=== PATIENT | female | born 1960 | race Caucasian/White ===

== ENCOUNTER 2021-06-06 16:25 | Inpatient (IN) | payer MEDICARE, OTHER ==
[~2021-06-06] VITALS: Ht 149.9 cm; Wt 46.5 kg
--- NOTE | ~2021-06-06 | CON ---
[address] [address] CONSULTATION Name: NATAFIFI Lara Room: [address]#: [id number] Admission: 06/06/21 Attend Phys: German Stubbs Discharge: 06/07/21 Date of : 60 Report #: [id number] THIS REPORT FOR: cc: Mary Duran Ahmad W. DO Vasudeva, Amita MD ~ DATE OF CONSULTATION: 06/07/2021 NEPHROLOGY CONSULTATION CONSULTING PHYSICIAN: Dr. Houser. REASON FOR NEPHROLOGY CONSULTATION: ESRD for hemodialysis need. REASON FOR ADMISSION: Shortness of breath. HISTORY OF PRESENT ILLNESS: This is a 60-year-old female with history of ESRD, on hemodialysis Saturday, Saturday, Saturday ____ dialysis unit under the care of Dr. Yusuf, has a right IJ tunneled dialysis catheter for dialysis and last dialysis was on Saturday, came in with shortness of breath. Chest x-ray does show pulmonary vascular congestion and her blood pressure was also running towards the higher side. When I saw her in the ER this morning, she was feeling a little better. She also had a hemoglobin of 6.1 on admission. No overt bleeding from anywhere. She was given blood transfusion. Hemoglobin was 9.3 this morning. The patient will be dialyzed today. ALLERGIES: SULFA. PAST MEDICAL AND SURGICAL HISTORY: Includes nephrectomy for Wilms tumor, gastric bypass surgery, breast reduction, lumbar disk surgery, hysterectomy, right knee arthroscopic surgery, , hypertension, hypothyroidism, breast cancer with mastectomy on right side. HOME MEDICATIONS: Include fentanyl patch, omeprazole, Effexor, levothyroxine, temazepam, Medrol Dosepak, Lasix, labetalol, clonidine, gabapentin, vitamin B12, tizanidine, trazodone, hydrocodone. FAMILY HISTORY: Noncontributory. SOCIAL HISTORY: Does not smoke, drink alcohol or use illicit drugs. PHYSICAL EXAMINATION: VITAL SIGNS: Blood pressure 173/91, temperature 37.4, pulse rate was 107, respiratory rate was 14 and her oxygenation was 99% on 2 liters of [place] [address] CONSULTATION Name: FIFI PEACE Room: [address]#: [id number] Admission: 06/06/21 Attend Phys: German Stubbs Discharge: 06/07/21 Date of : 60 Report #: [id number] GENERAL: She was awake, alert and oriented x 3. HEENT: Atraumatic and normocephalic. Conjunctivae normal. Ears, nose, and throat normal. Mucous membranes moist. NECK: No JVD. CHEST: Bilateral diminished breath sounds. CARDIAC: S1, S2 normal. No murmurs. Dialysis access right IJ tunneled dialysis catheter. ABDOMEN: Soft, nondistended, nontender. LOWER EXTREMITIES: No lower extremity edema. NEUROLOGIC: Grossly intact. PSYCHIATRIC: Mood and affect seems to be normal. LABORATORY DATA: WBC 9.7, hemoglobin 9.3 up from 6.1, platelet count was 171. Sodium was 137, potassium 4.9. Other labs are reviewed. IMAGING: Chest x-ray was reviewed. ASSESSMENT AND PLAN: 1. End-stage renal disease on hemodialysis every Saturday, Saturday and Saturday. Last outpatient dialysis was on Saturday. 2. Anemia, does have anemia of chronic kidney disease as well and but this is acute on chronic anemia and etiology is not clear. Admission hemoglobin was 6.1. 3. Hypertension. 4. Acute respiratory failure, fluid overload is contributing. 5. Hypertension. Blood pressure running into the higher side. PLAN: 1. The patient will be dialyzed today. We will try to remove as much fluid as possible. We will aim for 4 liters. 2. We will give her erythropoietin to help with her anemia. Acute bleeding needs to be ruled out by primary team. 3. We will continue to follow for dialysis needs. Please call with any questions. By: [id number] Orellana MD /nt
[~2021-06-06 16:25] MED LIST: ATENOLOL 25MG T25 MG PO; CIPROFLOXACIN500 M3 OR; CLONIDINE HCL0.1 MG PO; CYANOCOBAL1000 MCG/1 IM; DESYREL150 MG PO; EFFEXOR XR150 MG; EFFEXOR XR150 MG PO; FENTANYL PATCH75 MCG; FENTANYL PATCH75 MCG TOP; HYDROCODON-ACE1 EAC8 PO; HYDROCODONE-AP1 EACH PO; LABETALOL HCL100 MG PO; LASIX 40 MG TAB40 M1 PO; MEDROLDOSEPACK PO; NEURONTIN800 MG PO; PERCOCET 5-3251 EACH PO; PRILOSEC OTC20 MG PO; PRILOSEC40 MG; PROCARDIA XL60 MG; RESTORIL30 MG; RESTORIL30 MG PO; SYNTHROID100 MC1 PO; SYNTHROID100 MCG; VASOTEC20 MG; ZANAFLEX4 M1 PO
[2021-06-06 16:30] VITALS: BP 136/64
[2021-06-06 16:56] LABS: ABSOLUTE EOSINOPHILS 0.1 thou/uL (0.0-0.7); ABSOLUTE LYMPHOCYTES 0.7 thou/uL (0.8-5.3); ABSOLUTE MONOCYTES 0.7 thou/uL (0.0-1.2); ABSOLUTE NEUTROPHILS 8.1 thou/uL (1.6-8.1); BASOPHILS 0.4 %; EOSINOPHILS 1.5 %; LYMPHOCYTES 6.9 %; MCH 34.8 pg (26.0-34.0); MCHC 32.7 g/dL (28.0-37.0); MCV 106.6 fL (80.0-100.0); MONOCYTES 7.4 %; MPV 8.7 fl. (7.2-11.1); NUCLEATED RBCS 0 /100WBC; PLATELET COUNT* 171 thou/uL (150-400); POLYS 83.8 %; RBC 1.76 mil/uL (4.20-5.00); RDW-CV 18.9 % (10.5-14.5); WBC 9.7 thou/uL (4.0-11.0)
[2021-06-06 17:00] LABS: HEMATOCRIT 18.8 % (37.0-47.0); HEMOGLOBIN 6.1 gm/dL (12.0-15.0)
[2021-06-06 17:14] LABS: ANION GAP 11 mmol/L (7-16); BUN 27 mg/dL (7-18); CALCIUM 7.5 mg/dL (8.5-10.1); CHLORIDE 103 mmol/L (98-107); CO2 23 mmol/L (21-32); CREATININE 2.6 mg/dL (0.6-1.3); GLUCOSE 169 mg/dL (70-99); POTASSIUM 4.9 mmol/L (3.5-5.1); SODIUM 137 mmol/L (136-145)
[2021-06-06 17:25] LABS: ALBUMIN 1.9 g/dL (3.4-5.0); ALKALINE PHOSPHATASE 53 U/L (46-116); SGOT 23 U/L (15-37); SGPT 21 U/L (30-65); TOTAL BILIRUBIN 0.2 mg/dL (<0.1-1.0); TOTAL PROTEIN 4.6 g/dL (6.4-8.2)
[2021-06-06 17:28] LABS: NT-PRO BRAIN NAT PEPTIDE > 35000 pg/mL (<300)
--- NOTE | 2021-06-06 19:06 | NUR ---
ASSUMED CARE AT 1900. REPORT TAKEN FROM PELON PICKENS.
[2021-06-06 21:48] VITALS: BP 155/78
[2021-06-07 01:30] VITALS: BP 162/87
[2021-06-07 05:30] VITALS: BP 171/90
[2021-06-07 07:00] VITALS: BP 173/91
[2021-06-07 09:02] VITALS: BP 173/91
--- NOTE | 2021-06-07 12:13 | NUR ---
cm s/w pt who was receiving dialysis at [facility]. pt receives outpatient dialysis on 0500-noon seat time at [facility]. pt lives with spouse. and admitted to [facility] from [facility]. the plan is for pt to rtrn to snf. pt uses cane, walker, w/c. pt has home o2 at 2l. pt indicated she is independent with adls and is capable of completing chores. pt is transfused regularly. h&p and flowsheets to be submitted to [facility] at d/c.
[2021-06-07 13:25] VITALS: BP 146/71
--- NOTE | 2021-06-07 14:13 | EKG ---
[place] [address] ELECTROCARDIOGRAM REPORT Name: FIFI PEACE Room: [address] ADM IN .R.#: [id number] Admission: 06/06/21 Attend Phys: Tiesha Calzada Discharge: Date of : 60 Date of Service: 06/06/21 1716 Report #: [id number] THIS REPORT FOR: //name// [facility] ED Test Date: 2021-06-06 Test Time: 17:16:42 Pat Name: FIFI PEACE Department: Room: [facility] Gender: F Sanitary Plumber: CD : [phone] Requested By: Guillaume Houser Order Number: [id number] MD: Eleno Beltran Measurements Intervals [place] Rate: 106 P: 0 [place]: 178 QRS: -4 QRSD: 87 T: 263 QT: 348 QTc: 463 Interpretive Statements Sinus tachycardia Inferior infarct, age indeterminate Anterior infarct, old Compared to ECG 06/27/2011 19:56:00 Myocardial infarct finding now present Sinus rate has increased Electronically Signed On 06-07-2021 14:13:32 CDT by Eleno Beltran [email or web address] <ELECTRONICALLY SIGNED> By: Eleno Beltran MD, FAC 06/07/21 1413 1716 1716 Eleno Beltran MD, FAC /EPI
--- NOTE | 2021-06-07 15:20 | NUR ---
CM UPDATE: CM INFORMED BY THE PHYSICIAN OF PLAN FOR THE PT TO D/C BACK TO [facility]. CM INFORMED [facility] SNF ADMISSIONS OF THIS AND FAXED PT'S D/C SNF ORDERS. CM INFORMED THE RN IN-CHARGE OF THE PT OF THE PT'S TIME OF D/C AND WHERE TO CALL REPORT. CM WILL REMAIN AVAILABLE TO ASSIST AND FOLLOW NEEDED. [facility] PHONE: [phone] FAX: [phone]
--- NOTE | 2021-06-07 19:51 | NUR ---
PT ADMITTED TO ROOM 225 VIA BED FROM DIALYSIS AT APPROX 1325, PT AOX4, NO C/O PAIN OR SHORTNESS OF BREATH. ADMISSION ASSESSMENT AND HX COMPLETED CHARTED. DC ORDERS RECEIVED. IV AND SENIOR INTERACTIVE PRODUCER REMOVED. PT DC'D BY RONAL W/ TRANSPORT BACK TO [facility] AT APPROX 1515.
== END 2021-06-07 15:17 | DRG 811 ==
LOC: M.ERS 16:25 → M.TBA-ER 17:12 → M.2W 06-07 11:54
PROVIDERS: Family Medicine; ADMIT Internal Medicine; ATTEND Internal Medicine
PROC: 30233N1 Transfusion of Nonautologous Red Blood Cells into Peripheral Vein, Percutaneous Approach (ICD-10-PCS; principal; 2021-06-06)
DX: D46.9 Myelodysplastic syndrome, unspecified (principal); N18.6 End stage renal disease; J96.01 Acute respiratory failure with hypoxia; I50.32 Chronic diastolic (congestive) heart failure; J44.1 Chronic obstructive pulmonary disease with (acute) exacerbation; I13.2 Hypertensive heart and chronic kidney disease with heart failure and with stage 5 chronic kidney disease, or end stage renal disease; D63.1 Anemia in chronic kidney disease; E03.9 Hypothyroidism, unspecified; D75.9 Disease of blood and blood-forming organs, unspecified; Z20.822 Contact with and (suspected) exposure to COVID-19; Z98.84 Bariatric surgery status; Z90.710 Acquired absence of both cervix and uterus; Z98.891 History of uterine scar from previous surgery; Z85.3 Personal history of malignant neoplasm of breast; Z79.899 Other long term (current) drug therapy; Z88.2 Allergy status to sulfonamides; Z99.2 Dependence on renal dialysis; Z90.11 Acquired absence of right breast and nipple